=== PATIENT | female | born 1990 | race Caucasian/White ===

== ENCOUNTER 2017-06-04 09:59 | Observation (INO) ==
[2017-06-04 10:23] LABS: Bilirubin,Urine Negative (Negative); Blood,Urine Negative (Negative); Clarity,Urine Clear (Clear); Color,Urine Yellow (Yellow); Glucose,Urine (UA) Normal (Normal); Ketones,Urine Negative (Negative); Leukocyte Esterase,Urine Negative (Negative); Nitrite,Urine Negative (Negative); Protein,Urine Negative (Neg-Trace); Specific Gravity,Urine 1.027 (1.010-1.025); Urobilinogen,Urine Normal (Normal)
[2017-06-04] MEDS ORDERED: 0.9 % Sodium Chloride 1,000 ML IVC ONE (10:32)
--- NOTE | 2017-06-04 10:41 | Emergency Department Note ---
Disposition Clinical Impression: Syncope and collapse, Nausea and vomiting Hypertension Qualifiers: Hypertension type: unspecified Qualified Code(s): I10 - Essential (primary) hypertension Disposition: Admitted As Inpatient Condition: Fair Referrals: Chip Lau DO [Primary Care Provider] - Forms: ED Satisfaction Letter Time of Disposition: 13:02 Syncope HPI - General Chief Complaint: ED Syncope Stated Complaint: Possible seizure,syncope Time Seen by Provider: 06/04/17 10:09 Source: patient Limitations: no limitations Nursing Notes Reviewed: Yes Vital Signs Reviewed: Yes - History of Present Illness HPI Narrative: 27-year-old female history of PCOS, hypertension, on spironolactone presents after syncopal event where she was driving on her way to work, she felt very lightheaded and diaphoretic, she pulled over the side of the road and she passed out she passed out for a few minutes and woke up, and she had an episode of emesis. Patient denies history of syncope, however she did have one episode was similar to weeks ago where she passed out for a few minutes. She is no history of hemoptysis leg swelling DVT or oral contraception use Pt Subjective Complaint: loss of consciousness Onset (ago): unknown Number of episodes: 1 (Last week) Duration: second(s), minutes(s) Prodromal Symptoms: lightheaded, diaphoresis Injuries Sustained Associated with Event: none Current Symptoms: lightheaded Treatments prior to arrival: none - Related Data Allergies Allergy/AdvReac Type Severity Reaction Status Date / Time codeine Allergy Rash Verified 03/11/17 11:05 All systems ED: reviewed and negative except as stated. Review of Systems: As Per HPI Constitutional: Denies: fever, chills Eyes: Denies: eye pain ENT ED: Denies: ear pain Cardiovascular: Denies: chest pain, palpitations, dyspnea on exertion Respiratory: Denies: cough, dyspnea Gastrointestinal: Reports: as per HPI, nausea, vomiting. Denies: abdominal pain Genitourinary: Denies: urgency, dysuria Musculoskeletal: Denies: back pain Integumentary: Denies: rash Neurological: Denies: headache Psychiatric: Denies: anxiety Endocrine: Denies: fatigue Hematological/Lymphatic: Denies: easy bleeding Past Medical History - Past Medical History Attestation: Yes The following information was validated with the patient. Source: patient Medical history: Reports: non-contributory, hyperlipidemia, hypertension, other Surgical history: Reports: no surgical history Psychiatric history: Reports: depression CURRICULUM AND ASSESSMENT COORDINATOR history: Reports: polycystic ovary syndrome - Social History Smoking Status: Never smoker Smokeless Tobacco Status: No Alcohol use: Reports: none Drug use: Reports: none Physical Exam Constitutional: morbidly obese female 27-year-old tachycardic, F Redick, elevated blood pressure. Eyes: PERRLA, sclera anicteric ENT & Mouth: MM dry Neck: normal inspection, neck is supple Resp: CTA bilaterally, no resp distress CV: RRR, no m/g/r GI: normal inspection, soft, no guarding or rigidity Neuro: A&O3, CNII-XII grossly intact, PABLO Skin: on limited exam, skin intact with no rashes or lesions - General Limitations: no limitations General appearance: alert, in no apparent distress Course Course Narrative: 27-year-old female with nonexertional syncope, laid her head down no evidence of head trauma a bedside evaluation the patient is very diaphoretic, she is obese her blood pressures in the 160s systolic, she is on acute respiratory distress however she does appear very weak and dehydrated, her neurologic exam is nonfocal showed no evidence of head trauma, we will get basic lab work with IV fluids check d-dimer and troponin EKG shows no evidence of ischemic changes plan will be observation. - Reevaluation(s) Reevaluation #1: After evaluation, we did endolith patient she was able to go to the bathroom but still feels fairly symptomatic, her blood pressure dropped to the 90s systolic after standing sutures orthostatic vitals positive, still mildly hypertensive on complaint recumbent and still mildly symptomatic, her diaphoresis is improved but given that symptoms are nonexertional syncope with diaphoresis and emesis like admission for observation Viraj nurse practitioner accepted. Time: 12:55 Vital Signs Temperature 98.7 F 06/04/17 10:05 Pulse Rate 92 06/04/17 10:05 Respiratory Rate 18 06/04/17 10:05 Blood Pressure 164/115 06/04/17 10:05 O2 Sat by Pulse Oximetry 99 06/04/17 10:05 Temperature 98.7 F 06/04/17 10:05 Pulse Rate 106 06/04/17 12:42 Respiratory Rate 18 06/04/17 12:42 Blood Pressure 151/107 06/04/17 12:42 O2 Sat by Pulse Oximetry 97 06/04/17 12:42 Oxygen Delivery Oxygen Delivery Room Air Syncope - Differential Diagnosis Likely: syncope due to orthostatic hypotension, vasovagal syncope, pulmonary embolism, dehydration/metabolic disorder - Medical Records Medical records reviewed: Yes I reviewed the patient's medical records. - Lab Data Lab results reviewed: Yes I reviewed the patient's lab results. Result diagrams: 06/04/17 10:59 06/04/17 10:59 Lab Results 06/04/17 06/04/17 06/04/17 Range/Units 10:15 10:15 10:59 WBC 7.5 (4.3-11.1) K/mcL RBC 4.98 H (3.82-4.97) M/mcL Hgb 14.5 (11.5-15.4) g/dL Hct 41.6 (35.3-44.9) % MCV 83.5 (83.0-100.0) fL MCH 29.1 (28.0-33.3) pg MCHC 34.9 (31.6-35.5) g/dL RDW 12.4 (11.5-14.5) % Plt Count 348 (140-400) K/mcL MPV 9.4 (9.4-12.4) fL Immature Gran % 0.3 (0-4) % Seg Neutrophils % 58.7 % Lymphocytes % 33.0 % Monocytes % 6.1 % Eosinophils % 1.6 % Basophils % 0.3 % Neutrophils # 4.4 (1.6-8.9) K/mcL Lymphocytes # 2.5 (0.6-4.6) K/mcL Monocytes # 0.5 (0.0-1.3) K/mcL Eosinophils # 0.1 (0.0-0.6) K/mcL Basophils # 0.0 (0.0-0.2) K/mcL D-Dimer (0-500) ng/mLFEU Sodium (136-145) mEq/L Potassium (3.5-4.5) mEq/L Chloride (98-109) mEq/L Carbon Dioxide (19-29) mEq/L BUN (7-20) mg/dL Creatinine (0.57-1.11) mg/dL Est GFR ( Amer) (> 60) Est GFR (Non-Af Amer) (> 60) BUN/Creatinine Ratio (6-26) Glucose (70-99) mg/dL Calculated Osmolality (280-300) Calcium (8.6-10.8) mg/dL Troponin I (0-0.03) ng/mL Urine Color Yellow (Yellow) Urine Clarity Clear (Clear) Urine pH 6.0 (5.0-8.0) pH Units Ur Specific [place] 1.027 H (1.010-1.025) Urine Protein Negative (Neg-Trace) mg/dL Urine Glucose (UA) Normal (Normal) mg/dL Urine Ketones Negative (Negative) mg/dL Urine Blood Negative (Negative) Urine Nitrite Negative (Negative) Urine Bilirubin Negative (Negative) Urine Urobilinogen Normal (Normal) mg/dL Ur Leukocyte Esterase Negative (Negative) Ur Culture Indicated? NO (NO) Urine Test Negative (Negative) 06/04/17 06/04/17 06/04/17 Range/Units 10:59 10:59 10:59 WBC (4.3-11.1) K/mcL RBC (3.82-4.97) M/mcL Hgb (11.5-15.4) g/dL Hct (35.3-44.9) % MCV (83.0-100.0) fL MCH (28.0-33.3) pg MCHC (31.6-35.5) g/dL RDW (11.5-14.5) % Plt Count (140-400) K/mcL MPV (9.4-12.4) fL Immature Gran % (0-4) % Seg Neutrophils % % Lymphocytes % % Monocytes % % Eosinophils % % Basophils % % Neutrophils # (1.6-8.9) K/mcL Lymphocytes # (0.6-4.6) K/mcL Monocytes # (0.0-1.3) K/mcL Eosinophils # (0.0-0.6) K/mcL Basophils # (0.0-0.2) K/mcL D-Dimer 269 (0-500) ng/mLFEU Sodium 140 (136-145) mEq/L Potassium 4.2 (3.5-4.5) mEq/L Chloride 105 (98-109) mEq/L Carbon Dioxide 27 (19-29) mEq/L BUN 13 (7-20) mg/dL Creatinine 0.77 (0.57-1.11) mg/dL Est GFR ( Amer) > 60 (> 60) Est GFR (Non-Af Amer) > 60 (> 60) BUN/Creatinine Ratio 17 (6-26) Glucose 164 H (70-99) mg/dL Calculated Osmolality 294 (280-300) Calcium 9.9 (8.6-10.8) mg/dL Troponin I 0.00 (0-0.03) ng/mL Urine Color (Yellow) Urine Clarity (Clear) Urine pH (5.0-8.0) pH Units Ur Specific [place] (1.010-1.025) Urine Protein (Neg-Trace) mg/dL Urine Glucose (UA) (Normal) mg/dL Urine Ketones (Negative) mg/dL Urine Blood (Negative) Urine Nitrite (Negative) Urine Bilirubin (Negative) Urine Urobilinogen (Normal) mg/dL Ur Leukocyte Esterase (Negative) Ur Culture Indicated? (NO) Urine Test (Negative) - Radiology Data Radiology results reviewed: Yes I reviewed the patient's radiology results. Chest X-Ray 06/04/17 10:32 IMPRESSION: No acute cardiopulmonary process. D/ / Bo Draper MD / Bo Draper MD Interpreting Provider: Bo Draper MD - EKG Data EKG attestation: Yes I reviewed and interpreted this EKG. EKG shows normal: sinus rhythm Rate: normal (Nitroglycerin appear 156 QRS 114 QTC [address] segment elevations or depressions.) Rhythm: NSR [place]/QRS: normal Interpretation: no acute changes - Core Measures AMI Core Measures Followed: No Attestation Statement - Attestation Attestation: I examined this patient and my medical decision-making was reviewed with the Resident Physician. I agree with the documented findings, disposition and treatment plan as described except to the extent set forth below. Patient to the ED with a chief complaint of loss of consciousness. Patient states she was driving. She did not feel well. She was dizzy nauseated. States her hands were numb. She pulled over and had a loss of consciousness. He woke up sweating. He went home and was brought to the ED for evaluation by her significant other. No chest pain or palpitations. She has no cardiac history, on exam she is diaphoretic. Lungs clear. Heart regular. Plan. Cardiac workup is negative. Considering the patient had a syncopal episode while seated. Concerning that she still diaphoretic. She is feeling better after some fluids. She is admitted for further observation.
[2017-06-04 11:07] LABS: Basophils % 0.3 %; Eosinophils # 0.1 K/mcL (0.0-0.6); Eosinophils % 1.6 %; Hematocrit 41.6 % (35.3-44.9); Hemoglobin 14.5 g/dL (11.5-15.4); Immature Granulocytes % 0.3 % (0-4); Lymphocytes # 2.5 K/mcL (0.6-4.6); Mean Corpuscular HGB Conc 34.9 g/dL (31.6-35.5); Mean Corpuscular Hemoglobin 29.1 pg (28.0-33.3); Mean Corpuscular Volume 83.5 fL (83.0-100.0); Mean Platelet Volume 9.4 fL (9.4-12.4); Monocytes # 0.5 K/mcL (0.0-1.3); Monocytes % 6.1 %; Neutrophils # 4.4 K/mcL (1.6-8.9); Platelet Count 348 K/mcL (140-400); Red Blood Count 4.98 M/mcL (3.82-4.97); Red Cell Distribution Width 12.4 % (11.5-14.5); Segmented Neutrophils % 58.7 %
[2017-06-04 11:20] LABS: BUN/Creatinine Ratio 17 (6-26); Blood Urea Nitrogen 13 mg/dL (7-20); Calcium 9.9 mg/dL (8.6-10.8); Carbon Dioxide 27 mEq/L (19-29); Chloride 105 mEq/L (98-109); Glucose 164 mg/dL (70-99); Osmolality,Calculated 294 (280-300); Potassium 4.2 mEq/L (3.5-4.5); Sodium 140 mEq/L (136-145); eGFR For African Americans > 60 (> 60); eGFR For Non-African Americans > 60 (> 60)
[2017-06-04] MEDS ORDERED: Naloxone 0.4 MG/ML INJ IVP PRN (15:33)
[2017-06-04] MEDS ORDERED: Acetaminophen 325 MG TABLET PO PRN (15:33)
[2017-06-04] MEDS ORDERED: Ondansetron 4 MG/2 ML VIAL IVP PRN (15:33)
--- NOTE | 2017-06-04 16:33 | Internal Med History&Physical ---
<Kaia Ontiveros - Last Filed: 06/04/17 17:51> Date of Encounter: 06/04/17 Time of Encounter: 16:09 Assessment and Plan (1) Syncope and collapse Current visit: Yes Status: Acute 1 patient had episodes of diaphoresis and lightheadedness also consciousness for several minutes upon arousal she began to have emesis. No past history of drug or alcohol use. No history of seizures denies any palpitations does have history of migraines. Troponin was 0 continue to trend 2 cardiac monitoring 3 we will obtain cardiac echo 4 patient is on Ultram as well as amitriptyline which can lower seizure threshold we will hold them for now 5 obtain EEG 6 patient with positive orthostatic changes in the ER systolic blood pressure 150 on sitting dropping to 90 on standing. We will give some IV fluids- recheck orthostatic Hold HCTZ 7 check TSH (2) Hypertension Current visit: No Status: Chronic 1 experiencing orthostatic hypotension-we will hold hydrochlorothiazide for now Qualifiers: Hypertension type: essential hypertension Qualified Code(s): I10 - Essential (primary) hypertension (3) DVT prophylaxis Current visit: Yes Status: Acute 1 [facility] Internal Medicine - H&P: HPI Chief complaint: Syncope Admitted From: Emergency Dept Plans for Post Hospital Care: Home History of present illness: Ms. Larkin is a 27 year old female past history of hypertension, migraines fibromyalgia. According to the patient this a.m. she will go up she said she felt little off, now she was driving to work she felt very lightheaded and diaphoretic. She describes that she was trembling from the inside out. She pulled over to the side of the road and lost consciousness for a few moments. Upon awaking she had an episode of emesis. She denies any loss of bowel or bladder. She does admit to a similar episode approximately 2 weeks ago which was witnessed by her boyfriend. Again she became lightheaded and diaphoretic she lost consciousness and her boyfriend attempted to wake her. When she awoke she had an episode of emesis and felt weak and shaky the rest of the day. Up until today she has been in her usual state of health. She denies any fevers chills nausea vomiting diarrhea palpitations shortness of breath abdominal pain or chest pain. She does admit to at least one migraine a month. She denies a past history of seizures, she does have several cousins who have seizures. She denies any drug or alcohol use. She has been admitted for further work up and evaluation Past Med Surg Social Fam HX - Past Medical History Medical history: non-contributory, hyperlipidemia, hypertension, other Psychiatric history: depression - Past Surgical History Surgical History: no surgical history - Social History Smoking Status: Never smoker Smokeless Tobacco Status: No Alcohol use: none Drug use: none Internal Medicine - H&P: Meds Amitriptyline [Elavil] 10 mg PO HS 06/04/17 [History] DULoxetine [Cymbalta] 30 mg PO DAILY 06/04/17 [History] Spironolact/Hydrochlorothiazid [Aldactazide 25-25 Tablet] 1 tab PO DAILY [History] Tramadol HCl [Ultram] 50 mg PO BID PRN 06/04/17 [History] 3 Allergy/AdvReac Type Severity Reaction Status Date / Time codeine Allergy Rash Verified 03/11/17 11:05 All Systems PM: A 10-system review of systems was performed and is negative for pertinent findings except as documented above in the HPI. - Constitutional Constitutional: no chills, no fever(s), no night sweats - EENT Eyes: no change in vision, no discharge, no pain, no photophobia Nose, mouth and throat: no dysphagia, no nasal discharge, no neck pain, no sore throat - Cardiovascular Cardiovascular ROS IM: syncope, no chest pain, no diaphoresis, no dyspnea, no lightheadedness, no palpitations - Respiratory Respiratory: no cough, no dyspnea, no wheezing, no excessive phlegm production - Gastrointestinal Gastrointestinal: vomiting - Genitourinary Genitourinary: no change in urinary stream, no dysuria, no flank pain, no hematuria - Musculoskeletal Musculoskeletal ROS IM: no numbness, no tingling - Integumentary Integumentary IM: no rash, no unusual bruising - Constitutional Vitals: Temp Pulse Resp BP Pulse Ox 98.3 F 81 15 154/84 97 06/04/17 15:11 06/04/17 15:11 06/04/17 15:11 06/04/17 15:11 06/04/17 15:11 General appearance: Present: A&O X 3, answers questions appropriately - Head Head exam: Present: atraumatic, normocephalic - Eye Eye exam: Present: PERRL, conjuntiva pink, sclera anicteric Pupils: Present: PERRL - Neck Neck exam general surgery: Present: supple, trachea midline. Absent: lymphadenopathy - Respiratory Respiratory exam: Present: CTAB. Absent: accessory muscle use, rales, rhonchi, wheezes - Cardiovascular Cardiovascular exam: Present: RRR, +S1, +S2. Absent: diastolic murmur, gallop, rubs, systolic murmur - GI/Abdominal GI/Abdominal exam: Present: normal bowel sounds, soft, no peritoneal signs. Absent: distended, tenderness - Extremities Exam Extremities exam: Present: warm, radial pulses palpable and symmetrical. Absent : calf tenderness, cyanotic, pedal edema - Neurological Exam Neurological exam: Present: CN II-XII intact, oriented X3, no focal deficits. Absent: pronater drift, facial droop, speech deficit - Skin Skin exam: Present: dry, intact Internal Med - H&P Results - Labs CBC & Chem 7: 06/04/17 10:59 06/04/17 10:59 - EKG Data EKG shows normal: sinus rhythm - Diagnostic Studies Other Images Additional comments: Chest X-Ray 06/04/17 10:32 IMPRESSION: No acute cardiopulmonary process. D/ / Bo Draper MD / Bo Draper MD Interpreting Provider: Bo Draper MD <Jose Alan - Last Filed: 06/04/17 20:16> Date of Encounter: 06/04/17 Internal Medicine - H&P: HPI History of present illness: Ms. Larkin is a 27 year old female All Systems PM: A 10-system review of systems was performed and is negative for pertinent findings except as documented above in the HPI. - Constitutional Vitals: Temp Pulse Resp BP Pulse Ox 98.3 F 81 15 154/84 97 06/04/17 15:11 06/04/17 15:11 06/04/17 15:11 06/04/17 15:11 06/04/17 15:11 Internal Med - H&P Results - Labs CBC & Chem 7: 06/04/17 10:59 06/04/17 10:59 Labs: Cardiac Enzymes 06/04/17 Range/Units 17:04 Troponin I 0.00 (0-0.03) ng/mL - Attending Attestation I independently obtained history and examined this patient and my medical decision-making was reviewed with the nurse practitioner. I agree with the documented findings, disposition and treatment plan as described. My findings are summarized below: Patient presented with syncope today. It was unprovoked. She had presyncopal symptoms. She vomited afterwards. Denies chest pain. On physical exam her heart is regular with no murmurs rubs or gallops EKG reviewed by myself shows normal sinus rhythm rate of 93 bpm, normal axis and intervals no ST changes. Plan: Observation, syncope workup with telemetry echocardiogram, orthostatic vital signs, trend troponin. Obtain EEG to rule out seizure. Jose Alan MD
[2017-06-04 18:51] LABS: Thyroid Stimulating Hormone 1.774 mcIU/mL (0.350-4.840)
[2017-06-04 18:56] LABS: Amphetamine Screen,Urine Negative ng/mL (Cutoff=1000); Barbiturate Screen,Urine Negative ng/mL (Cutoff=200); Benzodiazepines Screen,Urine Negative ng/mL (Cutoff=200); Cannabinoid Screen,Urine Positive ng/mL (Cutoff = 50); Cocaine Screen,Urine Negative ng/mL (Cutoff= 300); Opiate Screen,Urine Negative ng/mL (Cutoff=300); Phencyclidine Screen,Urine Negative ng/mL (Cutoff=25)
[2017-06-05 05:01] LABS: Basophils % 0.2 %; Eosinophils # 0.1 K/mcL (0.0-0.6); Eosinophils % 1.4 %; Hematocrit 41.8 % (35.3-44.9); Hemoglobin 14.5 g/dL (11.5-15.4); Immature Granulocytes % 0.2 % (0-4); Lymphocytes % 34.9 %; Mean Corpuscular HGB Conc 34.7 g/dL (31.6-35.5); Mean Corpuscular Hemoglobin 29.5 pg (28.0-33.3); Mean Platelet Volume 9.6 fL (9.4-12.4); Monocytes # 0.6 K/mcL (0.0-1.3); Neutrophils # 4.9 K/mcL (1.6-8.9); Platelet Count 358 K/mcL (140-400); Red Blood Count 4.92 M/mcL (3.82-4.97); Red Cell Distribution Width 12.3 % (11.5-14.5); Segmented Neutrophils % 56.3 %
[2017-06-05 05:16] LABS: BUN/Creatinine Ratio 14 (6-26); Blood Urea Nitrogen 10 mg/dL (7-20); Calcium 9.3 mg/dL (8.6-10.8); Carbon Dioxide 22 mEq/L (19-29); Chloride 109 mEq/L (98-109); Glucose 100 mg/dL (70-99); Magnesium 2.1 mg/dL (1.6-2.6); Osmolality,Calculated 287 (280-300); Potassium 3.7 mEq/L (3.5-4.5); Sodium 139 mEq/L (136-145); eGFR For African Americans > 60 (> 60); eGFR For Non-African Americans > 60 (> 60)
[2017-06-05] MEDS: *HR* Enoxaparin 40 MG/0.4 ML SYRINGE SQ SCH (05:35)
--- NOTE | 2017-06-05 08:16 | Internal Med Progress Note ---
<Carl Espinosa - Last Filed: 06/05/17 17:51> Date of Encounter: 06/05/17 Time of Encounter: 16:03 - Assessment and plan (1) Syncope and collapse Current Visit: Yes Status: Acute Assessment and plan: EEG negative, test negative echocardiogram LVEF 60% without valvular motion abnormalaties, wall motion abnormalties. patient describes having two episodes: states she has buzzing sensation throughout body then palpitations, then passes out for a couple minutes. When she wakes up she has intense episode of nausea, vomiting. Denies confusion after gaining consciousness but had diplopia. both episodes patient was sitting. orthostatic vitals completed on floor was negative (laying down blood pressure 161/97 with heart rate of 84. Standing up blood pressure 161/97 with heart rate of 100) -orthostatics were positive in ER and patient received IVF patient has hx of migraines, PCOS to rule out arrythmia: will need holter or jail monitoring specialist. EKG NSR shows right bundle branch block cannot rule out vasovagal syncope: may need tilt table test. patient has wilcox facies with central obesity, no abdominal striae, reports irregular periods: MRI brain for evaluation of tumor also had diplopia: MRI brain to rule out MS. (2) Depression Current Visit: Yes Status: Acute Assessment and plan: hx of depression denies SI/HI continue home duloxetine Qualifiers: Depression Type: unspecified Qualified Code(s): F32.9 - Major depressive disorder, single episode, unspecified (3) Seizure Current Visit: Yes Status: Suspected Assessment and plan: EEG negative for epileptiform activity Neuro exam non-focal non-lateralizing (4) Nausea and vomiting Current Visit: Yes Status: Acute Assessment and plan: occurs after syncopal episode resolved. continue to monitor zofran prn Qualifiers: Vomiting type: unspecified Vomiting Intractability: non-intractable Qualified Code(s): R11.2 - Nausea with vomiting, unspecified (5) DVT prophylaxis Current Visit: Yes Status: Acute Assessment and plan: lovenox PRN - Subjective Interval history: Patient denies dizziness, blurry vision, confusion, headache, chest pain, abdominal pain. - Constitutional Vitals: Temp Pulse Resp BP Pulse Ox 98.5 F 82 12 130/67 96 06/05/17 06:30 06/05/17 06:30 06/05/17 06:30 06/05/17 06:30 06/05/17 06:30 General appearance: Present: A&O X 3, answers questions appropriately - Head Head exam: Present: atraumatic, normocephalic - Eye Eye exam: Present: PERRL, conjuntiva pink, sclera anicteric - Neck Neck exam general surgery: Present: supple, trachea midline. Absent: lymphadenopathy - Respiratory Respiratory exam: Present: CTAB. Absent: accessory muscle use, rales, rhonchi, wheezes - Cardiovascular Cardiovascular exam: Present: RRR, +S1, +S2. Absent: diastolic murmur, gallop, rubs, systolic murmur - GI/Abdominal GI/Abdominal exam: Present: normal bowel sounds, soft, no peritoneal signs. Absent: distended, tenderness - Extremities Exam Extremities exam: Present: warm, radial pulses palpable and symmetrical. Absent : calf tenderness, cyanotic, pedal edema - Neurological Exam Neurological exam: Present: CN II-XII intact, oriented X3, no focal deficits. Absent: pronater drift, facial droop, speech deficit - Skin Skin exam: Present: dry, intact Internal Medicine: Result - Labs CBC & Chem 7: 06/05/17 04:49 06/05/17 04:49 Labs: Short CBC 06/05/17 Range/Units 04:49 WBC 8.6 (4.3-11.1) K/mcL Hgb 14.5 (11.5-15.4) g/dL Hct 41.8 (35.3-44.9) % Plt Count 358 (140-400) K/mcL Neutrophils # 4.9 (1.6-8.9) K/mcL BMP 06/05/17 04:49 Sodium 139 Potassium 3.7 Chloride 109 Carbon Dioxide 22 BUN 10 Creatinine 0.71 Glucose 100 H Calcium 9.3 Cardiac Enzymes 06/04/17 06/05/17 Range/Units 17:04 04:49 Troponin I 0.00 0.00 (0-0.03) ng/mL - ABG Interpretation ABG results: PT/INR, D-dimer D-Dimer 269 ng/mLFEU (0-500) 06/04/17 10:59 Consult Discharge Plan - Plan Referrals: Chip Lau DO [Primary Care Provider] - <Haider Madden P - Last Filed: 06/05/17 18:53> Date of Encounter: 06/05/17 - Constitutional Vitals: Temp Pulse Resp BP Pulse Ox 97.9 F 88 14 168/89 96 06/05/17 16:09 06/05/17 16:09 06/05/17 16:09 06/05/17 16:09 06/05/17 16:09 Internal Medicine: Result - Labs CBC & Chem 7: 06/05/17 04:49 06/05/17 04:49 Labs: Short CBC 06/05/17 Range/Units 04:49 WBC 8.6 (4.3-11.1) K/mcL Hgb 14.5 (11.5-15.4) g/dL Hct 41.8 (35.3-44.9) % Plt Count 358 (140-400) K/mcL Neutrophils # 4.9 (1.6-8.9) K/mcL BMP 06/05/17 04:49 Sodium 139 Potassium 3.7 Chloride 109 Carbon Dioxide 22 BUN 10 Creatinine 0.71 Glucose 100 H Calcium 9.3 Cardiac Enzymes 06/05/17 Range/Units 04:49 Troponin I 0.00 (0-0.03) ng/mL - ABG Interpretation ABG results: PT/INR, D-dimer D-Dimer 269 ng/mLFEU (0-500) 06/04/17 10:59 - Impressions Impressions Echocardiogram 06/04/17 16:06 Impressions: Normal LV systolic function, LVEF 60%. Normal left ventricular diastolic function. Normal right ventricular size and function. No significant valvular dysfunction. No evidence of pulmonary hypertension. Left Ventricular Wall Motion: Rest Echo Findings All wall segments showed normal motion. Findings: Study Quality * Technically adequate exam. ECG Findings * Normal sinus rhythm. Left Ventricle * Normal LV systolic function, LVEF 60%. * Normal LV chamber size and wall thickness. * Normal left ventricular diastolic function. Right Ventricle * Normal right ventricular size and function. Left Atrium * Normal left atrial size. Right Atrium * Normal right atrial size. Aorta * Normally sized aortic root. Pericardium * There is no pericardial effusion present. IVC * The IVC is not dilated. Aortic Valve * Aortic valve not well visualized. * No aortic stenosis. * No aortic regurgitation. Mitral Valve * Normal mitral valve structure. * No mitral stenosis. * No mitral regurgitation. Tricuspid Valve * Normal tricuspid valve structure. * No tricuspid stenosis. * Trace tricuspid regurgitation. * No evidence of pulmonary hypertension. Pulmonic Valve * Normal pulmonic valve structure. * No pulmonic stenosis. * Trace pulmonic regurgitation. - Attending Attestation I examined this patient and my medical decision-making was reviewed with the Resident Physician. I agree with the documented findings, disposition and treatment plan as described except to the extent set forth below.
--- NOTE | 2017-06-05 13:05 | EEG/EMG/Oth Biometrics Report ---
EEG Procedure Report Date of procedure: 06/05/17 EEG Procedure: Routine EEG Procedure Note: Routine 18-channel digital EEG was obtained to rule out any seizure activity or focal abnormalities. FINDINGS: Background rhythm during awake stage shows well-organized, well- developed, average voltage 8 to 9 hertz alpha activity in the posterior regions. It blocks with eye opening and it is bilaterally synchronous and symmetrical. No [id number] discharges or any lateralizing abnormalities are seen. Photic stimulation did not produce any abnormalities. Hyperventilation was performed for 3 minutes. No abnormalities were found during the procedure. Intermittent EMG artifacts were seen. Stage II sleep was not achieved. IMPRESSION: Normal awake study. No epileptiform discharges or any other paroxysmal activities or focal abnormalities seen. Clinical correlation is recommended.
--- NOTE | 2017-06-05 19:52 | Electrocardiograph Report ---
[place] [id number] Test Date: 2017-06-04 Pat Name: Magda Larkin Department: 103 Room: 2N5 Gender: F [employer]ored Car [employer]: : 1990 Requested By: Michael Enriquez Order Number: [id number] Reading MD: Cole Ngo MD Measurements Intervals [place] Rate: 93 P: 51 WV: 156 QRS: 35 QRSD: 114 T: 33 QT: 350 QTc: 401 Interpretive Statements SINUS RHYTHM INCOMPLETE RIGHT BUNDLE BRANCH BLOCK BASELINE ARTIFACT Electronically Signed On 06-05-2017 19:51:07 EDT by Cole Ngo MD
[2017-06-06] MEDS: *HR* Enoxaparin 40 MG/0.4 ML SYRINGE SQ SCH (06:02)
[2017-06-06 06:53] VITALS: BP 150/95
--- NOTE | 2017-06-06 07:09 | Internal Med Progress Note ---
Date of Encounter: 06/06/17 - Assessment and plan (1) Syncope and collapse Current Visit: Yes Status: Acute (2) Depression Current Visit: Yes Status: Acute Qualifiers: Depression Type: unspecified Qualified Code(s): F32.9 - Major depressive disorder, single episode, unspecified (3) Seizure Current Visit: Yes Status: Suspected (4) Nausea and vomiting Current Visit: Yes Status: Acute Qualifiers: Vomiting type: unspecified Vomiting Intractability: non-intractable Qualified Code(s): R11.2 - Nausea with vomiting, unspecified (5) DVT prophylaxis Current Visit: Yes Status: Acute - Subjective Interval history: Patient denies dizziness, blurry vision, confusion, headache, chest pain, abdominal pain. - Constitutional Vitals: Temp Pulse Resp BP Pulse Ox 98.0 F 73 15 150/95 97 06/06/17 06:51 06/06/17 06:51 06/06/17 06:51 06/06/17 06:51 06/06/17 06:51 General appearance: Present: A&O X 3, answers questions appropriately Internal Medicine: Result - Labs CBC & Chem 7: 06/05/17 04:49 06/05/17 04:49 - ABG Interpretation ABG results: PT/INR, D-dimer D-Dimer 269 ng/mLFEU (0-500) 06/04/17 10:59 - Impressions Impressions Echocardiogram 06/04/17 16:06 Impressions: Normal LV systolic function, LVEF 60%. Normal left ventricular diastolic function. Normal right ventricular size and function. No significant valvular dysfunction. No evidence of pulmonary hypertension. Left Ventricular Wall Motion: Rest Echo Findings All wall segments showed normal motion. Findings: Study Quality * Technically adequate exam. ECG Findings * Normal sinus rhythm. Left Ventricle * Normal LV systolic function, LVEF 60%. * Normal LV chamber size and wall thickness. * Normal left ventricular diastolic function. Right Ventricle * Normal right ventricular size and function. Left Atrium * Normal left atrial size. Right Atrium * Normal right atrial size. Aorta * Normally sized aortic root. Pericardium * There is no pericardial effusion present. IVC * The IVC is not dilated. Aortic Valve * Aortic valve not well visualized. * No aortic stenosis. * No aortic regurgitation. Mitral Valve * Normal mitral valve structure. * No mitral stenosis. * No mitral regurgitation. Tricuspid Valve * Normal tricuspid valve structure. * No tricuspid stenosis. * Trace tricuspid regurgitation. * No evidence of pulmonary hypertension. Pulmonic Valve * Normal pulmonic valve structure. * No pulmonic stenosis. * Trace pulmonic regurgitation. Brain MRI 06/05/17 17:50 IMPRESSION: No acute abnormality D/ / Patel Nieves / Patel Nieves Interpreting Provider: Patel Nieves Consult Discharge Plan - Plan Referrals: Chip Lau DO [Primary Care Provider] -
--- NOTE | 2017-06-06 09:22 | Discharge Summary ---
<Carl Espinosa - Last Filed: 06/06/17 09:12> Date of Encounter: 06/06/17 Time of Encounter: 09:12 - Discharge Diagnosis (1) Syncope and collapse Priority: Primary Status: Acute (2) Depression Priority: Secondary Status: Acute Qualifiers: Depression Type: unspecified Qualified Code(s): F32.9 - Major depressive disorder, single episode, unspecified (3) Seizure Priority: Secondary Status: Suspected (4) Nausea and vomiting Priority: Secondary Status: Resolved Qualifiers: Vomiting type: unspecified Vomiting Intractability: non-intractable Qualified Code(s): R11.2 - Nausea with vomiting, unspecified (5) DVT prophylaxis Priority: Secondary Status: Acute - Discharge Medications Home Medications: Amitriptyline [Elavil] 10 mg PO HS 06/04/17 [History] DULoxetine [Cymbalta] 30 mg PO DAILY 06/04/17 [History] Spironolact/Hydrochlorothiazid [Aldactazide 25-25 Tablet] 1 tab PO DAILY [History] Tramadol HCl [Ultram] 50 mg PO BID PRN 06/04/17 [History] Allergies/Adverse Reactions: 3 Allergy/AdvReac Type Severity Reaction Status Date / Time codeine Allergy Rash Verified 03/11/17 11:05 Procedures/tests Complete & Pending: Procedures Performed prior 72 hours Category Date Time Status MR head/brain wo con [MR] Routine MRI 06/05/17 17:50 Completed EV echocardiogram Routine Y 06/04/17 16:06 Completed Date of admission: 06/04/17 13:26 Primary care physician: Chip Lau DO Consults: 06/05/17 10:35 Consult to Interpret Exam [CONS] Routine Consulting Provider: Margarita Wang I Consult to Interpret Exam: Interpret EEG Discharging clinician: Carl Espinosa Anticipated date of discharge: 06/06/17 - Patient Status Disposition: Home, Self-Care Condition: Fair Functional capacity at discharge: independent ambulation Overall status at discharge: patient is back to baseline - Ambulatory Orders Ambulatory Orders: ECG holter monitor [ECG] Time Frame: 06/06/17, Facility: [facility], Location: Cardiopulmonary Svc - Discharge Instructions Instructions: Holter Monitoring (GEN), Syncope (GEN) Follow Up With: Christina Edwards MD [Partnered Physician] - (called office and left a message they will call patient at home with appointment time if you have not heard from them by next week please call them) Jazzmine Conklin DO [Resident] - 06/12/17 3:00 pm Ray Stanton MD [Partnered Physician] - (office will call patient at home with appointment date and time) Margarita Wang MD [Partnered Physician] - 06/16/17 8:00 am Additional Instructions: Follow-up with neurology, cardiology, primary care physician, endocrinology. Discussed with psychiatry changes to Cymbalta as it has side effect profile of orthostatic hypotension and can be contributing to syncopal episodes. Please return to the ER if you have further syncopal episodes. Please do not drive. - Diet and Activity Activity: increase activity as tolerated Diet: advance to your usual diet Interval History: 27-year-old female with history of PCOS, hypertension presented with chief complaint of syncope. Patient had 2 episodes of this first which was 2 weeks ago. Both episode occurred while patient was sitting. The second episode occurred while patient was driving. Patient states that she has a buzzing sensation throughout her body, then has palpitations and passes out for a couple minutes. Upon regaining consciousness she denies confusion reports double vision and states she has intense episode of nausea and vomiting. Orthostatic vitals were positive when completed in the ER, patient was given IVF and repeat orthostatic vitals were negative. EEG was negative for epileptiform activity. MRI was negative for any acute intracranial abnormalities. EKG showed normal sinus rhythm with right bundle branch block. Echocardiogram showed a EF of 60% without valvular motion abnormalities or wall motion abnormalities. test negative. Patient did not have repeat occurrences of syncope, nausea, vomiting. She is able to ablate on her own and tolerating her diet. Patient also states she started Cymbalta 4 weeks ago. Cymbalta does have a side effect profile of orthostatic hypotension. Discussed with patient that she should not drive due to the recurring episodes of syncope. Plan: Patient will follow up with cardiology. Holter monitor ordered. Patient will also follow up with neurology and endocrinology outpatient. Follow up with psychiatry to discuss possible changes to cymbalta. . Hospital course: Ms. Larkin is a 27 year old female - Time Spent with Patient Total time spent providing and/or coordinating discharge services: - Constitutional Vitals: Temp Pulse Resp BP Pulse Ox 98.0 F 73 15 150/95 97 06/06/17 06:51 06/06/17 06:51 06/06/17 06:51 06/06/17 06:51 06/06/17 06:51 General appearance: Present: A&O X 3, answers questions appropriately - Head Head exam: Present: atraumatic, normocephalic - Eye Eye exam: Present: PERRL, conjuntiva pink, sclera anicteric - Neck Neck exam general surgery: Present: supple, trachea midline. Absent: lymphadenopathy - Respiratory Respiratory exam: Present: CTAB. Absent: accessory muscle use, rales, rhonchi, wheezes - Cardiovascular Cardiovascular exam: Present: RRR, +S1, +S2. Absent: diastolic murmur, gallop, rubs, systolic murmur - GI/Abdominal GI/Abdominal exam: Present: normal bowel sounds, soft, no peritoneal signs. Absent: distended, tenderness - Extremities Exam Extremities exam: Present: warm, radial pulses palpable and symmetrical. Absent : calf tenderness, cyanotic, pedal edema - Neurological Exam Neurological exam: Present: CN II-XII intact, oriented X3, no focal deficits. Absent: pronater drift, facial droop, speech deficit - Skin Skin exam: Present: dry, intact <Maryanne,Haider P - Last Filed: 06/06/17 19:07> Date of Encounter: 06/06/17 Procedures/tests Complete & Pending: Procedures Performed prior 72 hours Category Date Time Status MR head/brain wo con [MR] Routine MRI 06/05/17 17:50 Completed ECG event monitor [ECG] Routine Y 06/06/17 10:07 Completed EV echocardiogram Routine Y 06/04/17 16:06 Completed Date of admission: 06/04/17 13:26 Primary care physician: Chip Lau DO Consults: 06/05/17 10:35 Consult to Interpret Exam [CONS] Routine Consulting Provider: Margarita Wang I Consult to Interpret Exam: Interpret EEG Hospital course: Ms. Larkin is a 27 year old female - Time Spent with Patient Total time spent providing and/or coordinating discharge services: - Constitutional Vitals: Temp Pulse Resp BP Pulse Ox 98.0 F 73 15 150/95 97 06/06/17 06:51 06/06/17 06:51 06/06/17 06:51 06/06/17 06:51 06/06/17 06:51 - Attending Attestation I examined this patient and my medical decision-making was reviewed with the Resident Physician. I agree with the documented findings, disposition and treatment plan as described except to the extent set forth below.
[2017-06-06] MEDS ORDERED: FLUARIX QUAD 2017-18 36MOS UP/PF 0.5 ML SYRINGE IM ONE (10:49)
== END 2017-06-06 11:39 | disposition home or self-care (01) ==
LOC: EMEROO 09:59 → 2NENU 09:59
PROVIDERS: ADMIT Nurse Practitioner Family; ATTEND Internal Medicine